=== PATIENT | female | born 1945 | race Caucasian/White ===

== ENCOUNTER 2024-01-16 06:46 | Day surgery (SDC) | payer MEDICARE, OTHER, SELFPAY ==
--- NOTE | 2024-01-11 11:49 | CM ---
Patient is scheduled for surgery with Dr. Quiroga on 01/16/24. Spoke with patient prior to surgery via telephone. Introduced role of case management. Patient reports that she lives with her in a one story home. There is one step to enter and
then a flight of steps (with a stair glide) up to her home. She functions independently and uses a cane. She does not have any other DME. She has never had VN services. She has a prescription plan and uses [facility] in [place].
PCP is Dr. Bob Almonte
Patient states that she will have support from her when she goes home. She has no discharge planning concerns at this time.
[2024-01-16] VITALS (10 sets, daily range): BP systolic 81–134; BP diastolic 52–76; BMI 31.0
[2024-01-16] MEDS: Pyridium 200 MG PO (09:46)
[2024-01-16] MEDS: NORMOSOL-R 1000 IV (09:46)
== END 2024-01-16 16:18 | disposition home or self-care (01) ==
LOC: SDS 06:46
PROVIDERS: ATTENDING PHYSICIAN Obstetrics & Gynecology
DX: N81.11 Cystocele, midline (principal); N39.3 Stress incontinence (female) (male); R33.8 Other retention of urine; N31.9 Neuromuscular dysfunction of bladder, unspecified
CPT/HCPCS: 57288; 57120; 57250; 86850; 86900; 86901; C1771

== ENCOUNTER → 2024-02-06 12:54 | Outpatient (REF) | payer MEDICARE, OTHER, SELFPAY | LOC: RAD 12:54 | PROVIDERS: ATTENDING PHYSICIAN Internal Medicine; FAMILY PHYSICIAN Family Medicine | DX: R59.0 Localized enlarged lymph nodes (principal) | CPT/HCPCS: 71260; Q9967 ==

== ENCOUNTER 2024-07-04 22:18 | Emergency (ER) | payer MEDICARE, OTHER, SELFPAY ==
--- NOTE | 2024-07-04 22:31 | ED.GENMED ---
History of Present Illness
General
Chief Complaint: CODE
Source: family and ambulance crew
Exam Limitations: none
Time Seen by Provider: 07/04/24 22:30
Nursing documentation reviewed up to this point in time: agreed with
History of Present Illness
History of Present Illness:
78-year-old female presents emergency department in cardiac arrest. Active CPR in progress. She received 6 doses of epinephrine and was in asystole throughout the resuscitation attempt. EMS was called at 9:25 PM, she became unresponsive on the
toilet. They initiated CPR and intubated. They were unable to revive her.
Past History
Past History
ED Past Medical History: HTN and Hypercholesterolemia
ED Past Surgical History: Cholecystectomy and Orthopedic
Social History
Tobacco: Smoker
Personal:
Living: with family
Review of Systems
Review of Systems
Allergies reviewed?: Yes
Phy Exam
Physical Exam
Physical Exam:
CODE EXAM:
VITAL SIGNS: No palpable blood pressure, no pulses, no respiration.
GENERAL EXAM: Mottled
EYES: Pupils fixed
ENT: Patient intubated
NECK: No venous distention
RESPIRATORY: Equal breath sounds
CARDIAC: Absent heart sounds
VASCULAR: Absent pulses
ABDOMEN: Soft no masses
GUAIAC: Not done
MUSCULOSKELETAL: Unable to evaluate strength
EXTREMITIES: No edema or contractures
SKIN: No rash
PSYCH: Mood, affect unable to evaluate
MDM/Problems Addressed
Differential Diagnosis Includes:
Dysrhythmia, arrhythmia, [place]
MDM/Problems Addressed:
78-year-old female with cardiac arrest. Asystole upon arrival to ED. All resuscitative efforts exhausted, patient declared at 10:21 PM. Case discussed with dry dip worker who releases body.
Chronic conditions affecting care: HTN and COPD
Acute Exacerbation and/or Progression of Chronic Illness: HTN and COPD
*Pulse Oximetry
Patient hypoxic: yes
*[employer] Interpretation
Rate: other (0)
Interpretation: abnormal
Heart Rate: 0
Rhythm: other (asystole)
*Critical Care Note
Total Time (30-74mins, 75-104mins- exclusive of procedures): Not Applicable
ED Attending Note
-
Portions of this chart may have been created with voice recognition software.� Occasional wrong word or��sound alike� substitutions may have occurred due to the inherent limitations of voice recognition software.
Discharge Plan
Departure
Patient Disposition:
Date of Disposition: 07/04/24
Time of Disposition: 22:21
Patient with high blood pressure during this ER visit?: No
Discharge Problem:
Cardiac arrest
Prescriptions:
No Action
polyethylene glycol 3350 17 GRAMS powder in packet
17 grams PO MOWEFR
verapamil 240 MG tablet extended release
240 mg PO BID
pravastatin 20 MG tablet
20 mg PO DAILY
hydrochlorothiazide 25 MG tablet
25 mg PO DAILY
B-complex with vitamin C 1 CAPLET tablet
1 cap PO DAILY
multivitamin with folic acid [Tab-A-Padmaja] 1 TABLET tablet
1 tab PO DAILY
albuterol sulfate [ProAir HFA] 90 mcg/actuation Hfa Aerosol Inhaler
2 puff INHALATION 6XD PRN (Reason: copd)
Stiolto Respimat 2.5-2.5 mcg/actuation Mist
2 puff INHALATION BID
pramipexole [Mirapex] 1.5 mg Tablet
2.25 mg PO HS
gabapentin 100 mg Tablet
100 mg PO DAILY MDD pain PRN (Reason: prn)
Discharge Date and Time
Print Language: CZECH
== END 2024-07-04 22:21 | disposition expired ==
LOC: EMR 22:18
PROVIDERS: EMERGENCY PHYSICIAN Emergency Medicine
DX: I46.9 Cardiac arrest, cause unspecified (principal); E78.00 Pure hypercholesterolemia, unspecified; I10 Essential (primary) hypertension; J44.9 Chronic obstructive pulmonary disease, unspecified; F17.200 Nicotine dependence, unspecified, uncomplicated; Z90.49 Acquired absence of other specified parts of digestive tract
CPT/HCPCS: 99283; 92950